=== PATIENT | female | born 1935 | race Caucasian/White ===

== ENCOUNTER 2019-09-30 17:17 | Inpatient (IN) ==
[2019-09-30] MEDS ORDERED: *HR* Heparin 5,000 UNIT/ML VIAL IVP PRN (20:05)
[2019-09-30] MEDS ORDERED: *HR* Heparin 5,000 UNIT/ML VIAL IVP ONE (20:05)
[2019-09-30] MEDS ORDERED: Ondansetron 4 MG/2 ML VIAL IVP PRN (20:07)
[2019-09-30] MEDS ORDERED: Naloxone 0.4 MG/ML INJ IVP PRN (20:07)
[2019-09-30] MEDS ORDERED: 0.9 % Sodium Chloride 1,000 ML IVC SCH (20:15)
[2019-09-30 20:50] LABS: Hematocrit 38.1 % (35.3-44.9); Hemoglobin 12.3 g/dL (11.5-15.4); Mean Corpuscular HGB Conc 32.3 g/dL (31.6-35.5); Mean Corpuscular Hemoglobin 30.8 pg (28.0-33.3); Mean Corpuscular Volume 95.5 fL (83.0-100.0); Mean Platelet Volume 9.9 fL (9.4-12.4); Platelet Count 228 K/mcL (140-400); Red Blood Count 3.99 M/mcL (3.82-4.97); Red Cell Distribution Width 12.2 % (11.5-14.5); White Blood Count 7.9 K/mcL (4.3-11.1)
[2019-09-30 20:51] LABS: INR 1.4; Prothrombin Time 15.5 Seconds (9.4-12.1)
[2019-09-30 21:04] LABS: BUN/Creatinine Ratio 19 (6-26); Blood Urea Nitrogen 10 mg/dL (8-23); Carbon Dioxide 36 mEq/L (23-29); Chloride 94 mEq/L (98-107); Glucose 96 mg/dL (70-105); Osmolality,Calculated 277 (280-300); Potassium 3.9 mEq/L (3.5-5.1); Sodium 134 mEq/L (136-145); eGFR For African Americans > 60 (> 60); eGFR For Non-African Americans > 60 (> 60)
[2019-09-30 21:25] LABS: Thyroid Stimulating Hormone 2.469 mcIU/mL (0.340-5.600)
[2019-09-30 22:20] LABS: Estimated Average Glucose 114 mg/dl
[2019-09-30] MEDS: Heparin 25,000 UNIT/250 ML D5W 25,000 UNIT/250 ML IV.SOLN IVC SCH (22:23)
[2019-09-30] MEDS: *HR* Heparin 5,000 UNIT/ML VIAL IVP PRN (22:24)
[2019-10-01 06:07] LABS: Hematocrit 38.2 % (35.3-44.9); Hemoglobin 11.9 g/dL (11.5-15.4); Mean Corpuscular HGB Conc 31.2 g/dL (31.6-35.5); Mean Corpuscular Hemoglobin 31.2 pg (28.0-33.3); Mean Platelet Volume 10.4 fL (9.4-12.4); Platelet Count 219 K/mcL (140-400); Red Blood Count 3.82 M/mcL (3.82-4.97); Red Cell Distribution Width 12.2 % (11.5-14.5); White Blood Count 8.9 K/mcL (4.3-11.1)
[2019-10-01 06:27] LABS: Alanine Aminotransferase 7 Units/L (7-52); Albumin 3.5 g/dL (3.5-5.7); Albumin/Globulin Ratio 1.3 (1.1-2.2); Alkaline Phosphatase 35 Units/L (34-104); Aspartate Amino Transferase 17 Units/L (13-39); BUN/Creatinine Ratio 16 (6-26); Bilirubin,Total 0.5 mg/dL (0.3-1.0); Blood Urea Nitrogen 8 mg/dL (8-23); Carbon Dioxide 39 mEq/L (23-29); Chloride 93 mEq/L (98-107); Globulin 2.8 g/dL (2.4-3.5); Glucose 94 mg/dL (70-105); Magnesium 1.8 mg/dL (1.6-2.6); Osmolality,Calculated 286 (280-300); Potassium 3.5 mEq/L (3.5-5.1); Sodium 139 mEq/L (136-145); Total Protein 6.3 g/dL (6.4-8.9); eGFR For African Americans > 60 (> 60); eGFR For Non-African Americans > 60 (> 60)
[2019-10-01] MEDS ORDERED: Perflutren Lipid Microsphere 1.3 ML in 0.9 % Sodium Chloride 8.7 ML IVP ONE (07:12)
[2019-10-01] MEDS ORDERED: Ipratropium/Albuterol Neb 3 ML IH PRN (11:16)
[2019-10-01] MEDS ORDERED: FLU Vac QV 19-20 (6Month+)/PF 0.5 ML SYRINGE IM ONE (15:02)
[2019-10-01] MEDS: *HR* Heparin 5,000 UNIT/ML VIAL IVP PRN (17:20)
[2019-10-02 03:03] LABS: ABG Base Excess 11 mEq/L (-2 to 3); ABG HCO3 41 mEq/L (21-27); ABG Oxygen Saturation 91 % (95-98); ABG PCO2 88 mmHg (35-45); ABG PH 7.28 pH Units (7.32-7.45); ABG PO2 73 mmHg (85-104); ABG TCO2 44 mEq/L (20-26)
[2019-10-02] MEDS: Heparin 25,000 UNIT/250 ML D5W 25,000 UNIT/250 ML IV.SOLN IVC SCH (05:47)
[2019-10-02 05:58] LABS: Hematocrit 37.3 % (35.3-44.9); Hemoglobin 11.5 g/dL (11.5-15.4); Mean Corpuscular HGB Conc 30.8 g/dL (31.6-35.5); Mean Corpuscular Hemoglobin 30.8 pg (28.0-33.3); Mean Platelet Volume 9.9 fL (9.4-12.4); Platelet Count 172 K/mcL (140-400); Red Blood Count 3.73 M/mcL (3.82-4.97); Red Cell Distribution Width 12.2 % (11.5-14.5); White Blood Count 4.6 K/mcL (4.3-11.1)
[2019-10-02 06:30] LABS: BUN/Creatinine Ratio 15 (6-26); Blood Urea Nitrogen 8 mg/dL (8-23); Calcium 9.2 mg/dL (8.6-10.3); Carbon Dioxide 40 mEq/L (23-29); Chloride 94 mEq/L (98-107); Glucose 117 mg/dL (70-105); Magnesium 1.9 mg/dL (1.6-2.6); Osmolality,Calculated 285 (280-300); Potassium 3.8 mEq/L (3.5-5.1); Sodium 138 mEq/L (136-145); eGFR For African Americans > 60 (> 60); eGFR For Non-African Americans > 60 (> 60)
[2019-10-02] MEDS ORDERED: Acetaminophen 650 MG RECTAL SUPP RC PRN (11:15)
[2019-10-02] MEDS ORDERED: Benzonatate 100 MG CAPSULE PO PRN (11:15)
[2019-10-02] MEDS ORDERED: *HR* LORazepam Oral Conc 2 MG/ML PO PRN (11:15)
[2019-10-02] MEDS ORDERED: diazePAM 5 MG TABLET PO PRN (11:15)
[2019-10-02] MEDS ORDERED: Albuterol 2.5 MG/3 ML NEBULIZER IH PRN (11:15)
[2019-10-02] MEDS: Ipratropium/Albuterol Neb 3 ML IH SCH ×4 (12:01→23:33)
[2019-10-02] MEDS: predniSONE 20 MG TABLET PO SCH (12:30)
[2019-10-02] MEDS: Diltiazem CD (24hr) 120 MG CAPSULE PO SCH (15:01)
[2019-10-02 15:52] LABS: Adenovirus Not Detected (Not Detect); Bordetella Pertussis Not Detected (Not Detect); Chlamydophila pneumoniae Not Detected (Not Detect); Coronavirus 229E Not Detected (Not Detect); Coronavirus HKU1 Not Detected (Not Detect); Coronavirus NL63 Not Detected (Not Detect); Coronavirus OC43 Not Detected (Not Detect); Human Metapneumovirus Not Detected (Not Detect); Human Rhinovirus/Enterovirus Not Detected (Not Detect); Influenza A Subtype 2009 H1 Not Detected (Not Detect); Influenza B Not Detected (Not Detect); Mycoplasma pneumoniae Not Detected (Not Detect); Parainfluenza Virus 1 Not Detected (Not Detect); Parainfluenza Virus 2 Not Detected (Not Detect); Parainfluenza Virus 3 Not Detected (Not Detect); Parainfluenza Virus 4 Not Detected (Not Detect); Respiratory Syncytial Virus Not Detected (Not Detect)
[2019-10-02] MEDS: Apixaban 5 MG TABLET PO SCH ×2 (18:41→22:15)
[2019-10-02] MEDS ORDERED: *HR* Metoprolol 5 MG/5 ML VIAL IVP ONE (22:37)
[2019-10-03 03:16] LABS: BUN/Creatinine Ratio 20 (6-26); Blood Urea Nitrogen 11 mg/dL (8-23); Calcium 9.1 mg/dL (8.6-10.3); Carbon Dioxide 36 mEq/L (23-29); Chloride 93 mEq/L (98-107); Glucose 110 mg/dL (70-105); Osmolality,Calculated 278 (280-300); Potassium 4.1 mEq/L (3.5-5.1); Sodium 134 mEq/L (136-145); eGFR For African Americans > 60 (> 60); eGFR For Non-African Americans > 60 (> 60)
[2019-10-03 03:20] LABS: Hematocrit 36.7 % (35.3-44.9); Hemoglobin 11.4 g/dL (11.5-15.4); Mean Corpuscular HGB Conc 31.1 g/dL (31.6-35.5); Mean Corpuscular Hemoglobin 31.3 pg (28.0-33.3); Mean Corpuscular Volume 100.8 fL (83.0-100.0); Mean Platelet Volume 10.3 fL (9.4-12.4); Platelet Count 179 K/mcL (140-400); Red Blood Count 3.64 M/mcL (3.82-4.97); Red Cell Distribution Width 12.1 % (11.5-14.5); White Blood Count 5.1 K/mcL (4.3-11.1)
[2019-10-03] MEDS: Ipratropium/Albuterol Neb 3 ML IH SCH ×3 (03:53→11:37)
[2019-10-03] MEDS: Tiotropium 18 MCG inhalation IH SCH (07:18)
[2019-10-03] MEDS: Diltiazem CD (24hr) 120 MG CAPSULE PO SCH (08:42)
[2019-10-03] MEDS: Metoprolol 100 MG TABLET PO SCH ×2 (08:42→20:48)
[2019-10-03] MEDS: predniSONE 20 MG TABLET PO SCH (08:42)
[2019-10-03] MEDS: Apixaban 5 MG TABLET PO SCH ×2 (08:43→20:48)
[2019-10-03 11:33] LABS: ABG Base Excess 13 mEq/L (-2 to 3); ABG HCO3 44 mEq/L (21-27); ABG Oxygen Saturation 91 % (95-98); ABG PCO2 104 mmHg (35-45); ABG PH 7.24 pH Units (7.32-7.45); ABG PO2 78 mmHg (85-104); ABG TCO2 48 mEq/L (20-26)
[2019-10-03] MEDS ORDERED: Piperacillin/Tazobactam 3.375 GM in 0.9 % Sodium Chloride Mini Bag 100 ML IVPB SCH (12:00)
[2019-10-03] MEDS: MethylPREDNISolone 40 MG/ML VIAL IVP SCH (15:20)
[2019-10-03] MEDS: Levalbuterol Neb 0.63 MG/3 ML IH SCH ×2 (15:59→21:41)
[2019-10-04] MEDS: Piperacillin/Tazobactam 3.375 GM in 0.9 % Sodium Chloride Mini Bag 100 ML IVPB SCH ×3 (00:17→16:09)
[2019-10-04] MEDS: MethylPREDNISolone 40 MG/ML VIAL IVP SCH ×3 (00:17→16:09)
[2019-10-04] MEDS: Levalbuterol Neb 0.63 MG/3 ML IH SCH ×4 (03:26→21:41)
[2019-10-04 05:28] LABS: Hematocrit 39.8 % (35.3-44.9); Hemoglobin 12.3 g/dL (11.5-15.4); Immature Granulocytes % 0.3 % (0-4); Lymphocytes # 0.3 K/mcL (0.6-4.6); Lymphocytes % 9.1 %; Mean Corpuscular HGB Conc 30.9 g/dL (31.6-35.5); Mean Corpuscular Hemoglobin 30.9 pg (28.0-33.3); Mean Platelet Volume 10.8 fL (9.4-12.4); Monocytes # 0.1 K/mcL (0.0-1.3); Monocytes % 1.5 %; Platelet Count 170 K/mcL (140-400); Red Blood Count 3.98 M/mcL (3.82-4.97); Red Cell Distribution Width 11.9 % (11.5-14.5); Segmented Neutrophils % 89.1 %; White Blood Count 3.3 K/mcL (4.3-11.1)
[2019-10-04 05:46] LABS: BUN/Creatinine Ratio 21 (6-26); Blood Urea Nitrogen 12 mg/dL (8-23); Calcium 9.7 mg/dL (8.6-10.3); Carbon Dioxide 40 mEq/L (23-29); Chloride 88 mEq/L (98-107); Glucose 133 mg/dL (70-105); Magnesium 1.9 mg/dL (1.6-2.6); Osmolality,Calculated 282 (280-300); Potassium 4.8 mEq/L (3.5-5.1); Sodium 135 mEq/L (136-145); eGFR For African Americans > 60 (> 60); eGFR For Non-African Americans > 60 (> 60)
[2019-10-04] MEDS ORDERED: *HR* LORazepam 2 MG/ML VIAL IVP ONE (08:57)
[2019-10-04] MEDS: Metoprolol 100 MG TABLET PO SCH ×2 (09:03→21:10)
[2019-10-04] MEDS: Diltiazem CD (24hr) 180 MG CAPSULE PO SCH (09:03)
[2019-10-04] MEDS: Apixaban 5 MG TABLET PO SCH ×2 (09:03→21:10)
[2019-10-04] MEDS: Tiotropium 18 MCG inhalation IH SCH (10:52)
[2019-10-04] MEDS: *HR* LORazepam Oral Conc 2 MG/ML PO PRN (12:12)
[2019-10-05 00:40] LABS: Bilirubin,Urine Negative (Negative); Blood,Urine Negative (Negative); Clarity,Urine Clear (Clear); Color,Urine Yellow (Yellow); Glucose,Urine (UA) Normal (Normal); Ketones,Urine Negative (Negative); Leukocyte Esterase,Urine Negative (Negative); Nitrite,Urine Negative (Negative); PH,Urine 6.5 pH Units (5.0-8.0); Protein,Urine Negative (Neg-Trace); Urobilinogen,Urine Normal (Normal)
[2019-10-05] MEDS: MethylPREDNISolone 40 MG/ML VIAL IVP SCH ×3 (00:46→16:38)
[2019-10-05] MEDS: Piperacillin/Tazobactam 3.375 GM in 0.9 % Sodium Chloride Mini Bag 100 ML IVPB SCH ×3 (00:46→16:38)
[2019-10-05] MEDS: Levalbuterol Neb 0.63 MG/3 ML IH SCH ×4 (04:05→22:23)
[2019-10-05] MEDS: *HR* LORazepam Oral Conc 2 MG/ML PO PRN (04:48)
[2019-10-05 07:10] LABS: Hematocrit 36.8 % (35.3-44.9); Hemoglobin 11.7 g/dL (11.5-15.4); Immature Granulocytes % 0.7 % (0-4); Lymphocytes # 0.2 K/mcL (0.6-4.6); Lymphocytes % 3.8 %; Mean Corpuscular HGB Conc 31.8 g/dL (31.6-35.5); Mean Corpuscular Hemoglobin 30.8 pg (28.0-33.3); Mean Corpuscular Volume 96.8 fL (83.0-100.0); Mean Platelet Volume 10.9 fL (9.4-12.4); Monocytes # 0.2 K/mcL (0.0-1.3); Monocytes % 3.3 %; Neutrophils # 5.1 K/mcL (1.6-8.9); Platelet Count 184 K/mcL (140-400); Red Cell Distribution Width 12.3 % (11.5-14.5); Segmented Neutrophils % 92.2 %
[2019-10-05 07:18] LABS: White Blood Count 5.5 K/mcL (4.3-11.1)
[2019-10-05 07:53] LABS: BUN/Creatinine Ratio 25 (6-26); Blood Urea Nitrogen 14 mg/dL (8-23); Calcium 9.3 mg/dL (8.6-10.3); Carbon Dioxide 44 mEq/L (23-29); Chloride 90 mEq/L (98-107); Glucose 159 mg/dL (70-105); Osmolality,Calculated 292 (280-300); Potassium 4.3 mEq/L (3.5-5.1); Sodium 139 mEq/L (136-145); eGFR For African Americans > 60 (> 60); eGFR For Non-African Americans > 60 (> 60)
[2019-10-05] MEDS: Tiotropium 18 MCG inhalation IH SCH (09:58)
[2019-10-05] MEDS: Apixaban 5 MG TABLET PO SCH ×2 (10:40→19:31)
[2019-10-05] MEDS: Diltiazem CD (24hr) 180 MG CAPSULE PO SCH (10:40)
[2019-10-05] MEDS: Metoprolol 100 MG TABLET PO SCH ×2 (10:40→19:31)
[2019-10-06] MEDS: Piperacillin/Tazobactam 3.375 GM in 0.9 % Sodium Chloride Mini Bag 100 ML IVPB SCH ×3 (00:07→16:17)
[2019-10-06] MEDS: MethylPREDNISolone 40 MG/ML VIAL IVP SCH ×3 (00:07→16:17)
[2019-10-06] MEDS: *HR* LORazepam Oral Conc 2 MG/ML PO PRN ×2 (04:12→10:39)
[2019-10-06] MEDS: Levalbuterol Neb 0.63 MG/3 ML IH SCH ×4 (04:14→22:31)
[2019-10-06 06:01] LABS: Hematocrit 41.5 % (35.3-44.9); Immature Granulocytes % 0.6 % (0-4); Lymphocytes # 0.4 K/mcL (0.6-4.6); Lymphocytes % 5.8 %; Mean Corpuscular HGB Conc 31.3 g/dL (31.6-35.5); Mean Corpuscular Hemoglobin 30.5 pg (28.0-33.3); Mean Corpuscular Volume 97.4 fL (83.0-100.0); Mean Platelet Volume 10.8 fL (9.4-12.4); Monocytes # 0.3 K/mcL (0.0-1.3); Monocytes % 4.3 %; Neutrophils # 5.6 K/mcL (1.6-8.9); Platelet Count 186 K/mcL (140-400); Red Blood Count 4.26 M/mcL (3.82-4.97); Red Cell Distribution Width 12.4 % (11.5-14.5); Segmented Neutrophils % 89.3 %; White Blood Count 6.2 K/mcL (4.3-11.1)
[2019-10-06 06:06] LABS: BUN/Creatinine Ratio 28 (6-26); Blood Urea Nitrogen 16 mg/dL (8-23); Calcium 9.4 mg/dL (8.6-10.3); Carbon Dioxide 39 mEq/L (23-29); Chloride 91 mEq/L (98-107); Glucose 148 mg/dL (70-105); Osmolality,Calculated 288 (280-300); Potassium 4.7 mEq/L (3.5-5.1); Sodium 137 mEq/L (136-145); eGFR For African Americans > 60 (> 60); eGFR For Non-African Americans > 60 (> 60)
[2019-10-06] MEDS: Diltiazem CD (24hr) 180 MG CAPSULE PO SCH (09:41)
[2019-10-06] MEDS: Metoprolol 100 MG TABLET PO SCH ×2 (09:41→21:47)
[2019-10-06] MEDS: Apixaban 5 MG TABLET PO SCH ×2 (09:41→21:47)
[2019-10-06] MEDS: Diltiazem SR (12hr) 60 MG CAPSULE PO SCH ×2 (10:33→21:46)
[2019-10-06] MEDS: Tiotropium 18 MCG inhalation IH SCH (10:46)
[2019-10-07] MEDS: Levalbuterol Neb 0.63 MG/3 ML IH SCH ×4 (04:39→21:28)
[2019-10-07] MEDS: Metoprolol 100 MG TABLET PO SCH ×2 (08:37→20:39)
[2019-10-07] MEDS: MethylPREDNISolone 40 MG/ML VIAL IVP SCH ×2 (08:38→16:33)
[2019-10-07] MEDS: levoFLOXacin 750 MG TABLET PO SCH (08:38)
[2019-10-07] MEDS: Apixaban 5 MG TABLET PO SCH ×2 (08:38→20:39)
[2019-10-07] MEDS: Diltiazem CD (24hr) 300 MG CAPSULE PO SCH (08:38)
[2019-10-07] MEDS ORDERED: Diltiazem CD (24hr) 240 MG CAPSULE PO SCH (09:00)
[2019-10-07] MEDS: Tiotropium 18 MCG inhalation IH SCH (09:30)
[2019-10-07] MEDS: *HR* LORazepam Oral Conc 2 MG/ML PO PRN ×2 (16:42→20:44)
[2019-10-08] MEDS: Levalbuterol Neb 0.63 MG/3 ML IH SCH ×4 (03:33→22:24)
[2019-10-08] MEDS: levoFLOXacin 750 MG TABLET PO SCH (08:14)
[2019-10-08] MEDS: Metoprolol 100 MG TABLET PO SCH ×2 (08:14→20:20)
[2019-10-08] MEDS: Apixaban 5 MG TABLET PO SCH ×2 (08:14→20:20)
[2019-10-08] MEDS: Diltiazem CD (24hr) 300 MG CAPSULE PO SCH (08:14)
[2019-10-08] MEDS: MethylPREDNISolone 40 MG/ML VIAL IVP SCH ×2 (08:14→16:08)
[2019-10-08] MEDS: Tiotropium 18 MCG inhalation IH SCH (10:34)
[2019-10-08] MEDS: *HR* LORazepam Oral Conc 2 MG/ML PO PRN (16:12)
[2019-10-09] MEDS: *HR* LORazepam Oral Conc 2 MG/ML PO PRN ×2 (00:23→08:15)
[2019-10-09] MEDS: Levalbuterol Neb 0.63 MG/3 ML IH SCH ×4 (03:25→20:58)
[2019-10-09 05:38] LABS: Hematocrit 38.6 % (35.3-44.9); Immature Granulocytes % 0.7 % (0-4); Lymphocytes # 0.3 K/mcL (0.6-4.6); Lymphocytes % 5.2 %; Mean Corpuscular HGB Conc 31.1 g/dL (31.6-35.5); Mean Corpuscular Hemoglobin 31.4 pg (28.0-33.3); Mean Platelet Volume 10.6 fL (9.4-12.4); Monocytes # 0.4 K/mcL (0.0-1.3); Neutrophils # 5.4 K/mcL (1.6-8.9); Platelet Count 173 K/mcL (140-400); Red Blood Count 3.82 M/mcL (3.82-4.97); Red Cell Distribution Width 12.3 % (11.5-14.5); Segmented Neutrophils % 88.1 %; White Blood Count 6.1 K/mcL (4.3-11.1)
[2019-10-09 05:54] LABS: BUN/Creatinine Ratio 33 (6-26); Blood Urea Nitrogen 22 mg/dL (8-23); Calcium 9.2 mg/dL (8.6-10.3); Carbon Dioxide 45 mEq/L (23-29); Chloride 90 mEq/L (98-107); Glucose 183 mg/dL (70-105); Osmolality,Calculated 294 (280-300); Potassium 4.8 mEq/L (3.5-5.1); Sodium 138 mEq/L (136-145); eGFR For African Americans > 60 (> 60); eGFR For Non-African Americans > 60 (> 60)
[2019-10-09] MEDS ORDERED: *HR* Metoprolol 5 MG/5 ML VIAL IVP STA (06:32)
[2019-10-09] MEDS: Metoprolol 100 MG TABLET PO SCH ×2 (07:59→21:14)
[2019-10-09] MEDS: Apixaban 5 MG TABLET PO SCH ×2 (07:59→21:14)
[2019-10-09] MEDS: Diltiazem CD (24hr) 300 MG CAPSULE PO SCH (07:59)
[2019-10-09] MEDS: levoFLOXacin 750 MG TABLET PO SCH (08:00)
[2019-10-09] MEDS: MethylPREDNISolone 40 MG/ML VIAL IVP SCH ×2 (08:00→15:43)
[2019-10-09] MEDS: Tiotropium 18 MCG inhalation IH SCH (10:49)
[2019-10-10] MEDS: Levalbuterol Neb 0.63 MG/3 ML IH SCH ×4 (03:30→22:55)
[2019-10-10 04:52] LABS: Basophils % 0.1 %; Hematocrit 40.3 % (35.3-44.9); Hemoglobin 12.6 g/dL (11.5-15.4); Immature Granulocytes % 0.4 % (0-4); Lymphocytes # 0.4 K/mcL (0.6-4.6); Lymphocytes % 4.6 %; Mean Corpuscular HGB Conc 31.3 g/dL (31.6-35.5); Mean Platelet Volume 10.8 fL (9.4-12.4); Monocytes # 0.4 K/mcL (0.0-1.3); Monocytes % 5.3 %; Neutrophils # 6.9 K/mcL (1.6-8.9); Platelet Count 205 K/mcL (140-400); Red Blood Count 4.07 M/mcL (3.82-4.97); Red Cell Distribution Width 12.2 % (11.5-14.5); Segmented Neutrophils % 89.6 %; White Blood Count 7.7 K/mcL (4.3-11.1)
[2019-10-10 05:23] LABS: BUN/Creatinine Ratio 29 (6-26); Blood Urea Nitrogen 19 mg/dL (8-23); Calcium 9.2 mg/dL (8.6-10.3); Carbon Dioxide 43 mEq/L (23-29); Chloride 88 mEq/L (98-107); Glucose 158 mg/dL (70-105); Osmolality,Calculated 288 (280-300); Potassium 4.7 mEq/L (3.5-5.1); Sodium 136 mEq/L (136-145); eGFR For African Americans > 60 (> 60); eGFR For Non-African Americans > 60 (> 60)
[2019-10-10] MEDS: Diltiazem CD (24hr) 300 MG CAPSULE PO SCH (06:04)
[2019-10-10] MEDS: levoFLOXacin 750 MG TABLET PO SCH (08:15)
[2019-10-10] MEDS: MethylPREDNISolone 40 MG/ML VIAL IVP SCH ×2 (08:16→16:51)
[2019-10-10] MEDS: Apixaban 5 MG TABLET PO SCH ×2 (08:16→20:05)
[2019-10-10] MEDS: Metoprolol 100 MG TABLET PO SCH ×2 (08:16→20:05)
[2019-10-10] MEDS: *HR* LORazepam Oral Conc 2 MG/ML PO PRN ×2 (10:17→18:36)
[2019-10-10] MEDS: Tiotropium 18 MCG inhalation IH SCH (10:49)
[2019-10-10] MEDS ORDERED: *HR* Metoprolol 5 MG/5 ML VIAL IVP ONE (23:59)
[2019-10-11 01:27] LABS: Hematocrit 37.4 % (35.3-44.9); Hemoglobin 11.5 g/dL (11.5-15.4); Immature Granulocytes % 0.5 % (0-4); Lymphocytes # 0.2 K/mcL (0.6-4.6); Lymphocytes % 3.1 %; Mean Corpuscular HGB Conc 30.7 g/dL (31.6-35.5); Mean Corpuscular Hemoglobin 30.9 pg (28.0-33.3); Mean Corpuscular Volume 100.5 fL (83.0-100.0); Mean Platelet Volume 10.4 fL (9.4-12.4); Monocytes # 0.3 K/mcL (0.0-1.3); Monocytes % 3.6 %; Platelet Count 165 K/mcL (140-400); Red Blood Count 3.72 M/mcL (3.82-4.97); Red Cell Distribution Width 12.1 % (11.5-14.5); Segmented Neutrophils % 92.8 %; White Blood Count 7.5 K/mcL (4.3-11.1)
[2019-10-11 01:54] LABS: BUN/Creatinine Ratio 43 (6-26); Blood Urea Nitrogen 23 mg/dL (8-23); Calcium 8.8 mg/dL (8.6-10.3); Carbon Dioxide 43 mEq/L (23-29); Chloride 89 mEq/L (98-107); Glucose 207 mg/dL (70-105); Osmolality,Calculated 290 (280-300); Potassium 4.8 mEq/L (3.5-5.1); Sodium 135 mEq/L (136-145); eGFR For African Americans > 60 (> 60); eGFR For Non-African Americans > 60 (> 60)
[2019-10-11] MEDS ORDERED: *HR* Metoprolol 5 MG/5 ML VIAL IVP ONE (02:35)
[2019-10-11] MEDS: Levalbuterol Neb 0.63 MG/3 ML IH SCH ×4 (04:11→22:38)
[2019-10-11] MEDS: Metoprolol 100 MG TABLET PO SCH (05:59)
[2019-10-11] MEDS ORDERED: Metoprolol XL (24 HR) Succ 50 MG TAB.ER.24H PO SCH (09:00)
[2019-10-11] MEDS: Tiotropium 18 MCG inhalation IH SCH (10:19)
[2019-10-11] MEDS: levoFLOXacin 750 MG TABLET PO SCH (11:32)
[2019-10-11] MEDS: Diltiazem CD (24hr) 300 MG CAPSULE PO SCH (11:32)
[2019-10-11] MEDS: Apixaban 5 MG TABLET PO SCH ×2 (11:32→22:34)
[2019-10-11] MEDS: predniSONE 20 MG TABLET PO SCH (11:32)
[2019-10-11] MEDS: *HR* Digoxin 0.5 MG/2 ML AMPUL IVP SCH (17:19)
[2019-10-11] MEDS: *HR* LORazepam Oral Conc 2 MG/ML PO PRN (22:35)
[2019-10-12] MEDS: *HR* Digoxin 0.5 MG/2 ML AMPUL IVP SCH ×2 (00:08→05:44)
[2019-10-12 02:22] LABS: Hematocrit 37.7 % (35.3-44.9); Hemoglobin 12.1 g/dL (11.5-15.4); Lymphocytes # 0.5 K/mcL (0.6-4.6); Lymphocytes % 6.5 %; Mean Corpuscular HGB Conc 32.1 g/dL (31.6-35.5); Mean Corpuscular Hemoglobin 31.3 pg (28.0-33.3); Mean Corpuscular Volume 97.4 fL (83.0-100.0); Mean Platelet Volume 10.5 fL (9.4-12.4); Monocytes # 0.8 K/mcL (0.0-1.3); Monocytes % 10.7 %; Neutrophils # 5.8 K/mcL (1.6-8.9); Platelet Count 172 K/mcL (140-400); Red Blood Count 3.87 M/mcL (3.82-4.97); Red Cell Distribution Width 12.2 % (11.5-14.5); Segmented Neutrophils % 81.8 %; White Blood Count 7.1 K/mcL (4.3-11.1)
[2019-10-12 02:49] LABS: BUN/Creatinine Ratio 29 (6-26); Blood Urea Nitrogen 17 mg/dL (8-23); Calcium 8.8 mg/dL (8.6-10.3); Carbon Dioxide > 45 mEq/L (23-29); Chloride 91 mEq/L (98-107); Glucose 151 mg/dL (70-105); Magnesium 2.3 mg/dL (1.6-2.6); Osmolality,Calculated 290 (280-300); Potassium 4.5 mEq/L (3.5-5.1); Sodium 138 mEq/L (136-145); eGFR For African Americans > 60 (> 60); eGFR For Non-African Americans > 60 (> 60)
[2019-10-12] MEDS: Levalbuterol Neb 0.63 MG/3 ML IH SCH ×3 (03:35→16:16)
[2019-10-12] MEDS: Apixaban 5 MG TABLET PO SCH ×2 (08:47→21:21)
[2019-10-12] MEDS: predniSONE 20 MG TABLET PO SCH (08:48)
[2019-10-12] MEDS: Metoprolol XL (24 HR) Succ 50 MG TAB.ER.24H PO SCH (08:48)
[2019-10-12] MEDS ORDERED: Diltiazem CD (24hr) 240 MG CAPSULE PO SCH (09:00)
[2019-10-12] MEDS ORDERED: *HR* Digoxin 0.125 MG TABLET PO SCH (09:00)
[2019-10-12] MEDS: Tiotropium 18 MCG inhalation IH SCH (10:27)
[2019-10-12] MEDS: *HR* Digoxin 0.125 MG TABLET PO SCH (14:15)
[2019-10-12] MEDS ORDERED: *HR* Digoxin 0.5 MG/2 ML AMPUL IVP ONE ×2 (14:17→17:58)
[2019-10-12] MEDS ORDERED: Levalbuterol Neb 0.63 MG/3 ML IH PRN (16:23)
[2019-10-13] MEDS: *HR* LORazepam Oral Conc 2 MG/ML PO PRN ×2 (02:29→15:06)
[2019-10-13 07:34] LABS: Basophils % 0.1 %; Eosinophils # 0.1 K/mcL (0.0-0.6); Eosinophils % 1.1 %; Hematocrit 39.7 % (35.3-44.9); Hemoglobin 12.4 g/dL (11.5-15.4); Immature Granulocytes % 0.6 % (0-4); Lymphocytes # 1.2 K/mcL (0.6-4.6); Lymphocytes % 13.2 %; Mean Corpuscular HGB Conc 31.2 g/dL (31.6-35.5); Mean Corpuscular Hemoglobin 30.8 pg (28.0-33.3); Mean Corpuscular Volume 98.5 fL (83.0-100.0); Mean Platelet Volume 10.4 fL (9.4-12.4); Monocytes # 1.1 K/mcL (0.0-1.3); Monocytes % 12.9 %; Neutrophils # 6.3 K/mcL (1.6-8.9); Platelet Count 176 K/mcL (140-400); Red Blood Count 4.03 M/mcL (3.82-4.97); Red Cell Distribution Width 12.2 % (11.5-14.5); Segmented Neutrophils % 72.1 %; White Blood Count 8.8 K/mcL (4.3-11.1)
[2019-10-13] MEDS: *HR* Digoxin 0.125 MG TABLET PO SCH (08:08)
[2019-10-13] MEDS: Metoprolol XL (24 HR) Succ 50 MG TAB.ER.24H PO SCH (08:08)
[2019-10-13] MEDS: Apixaban 5 MG TABLET PO SCH (08:08)
[2019-10-13] MEDS ORDERED: predniSONE 20 MG TABLET PO SCH (09:00)
[2019-10-13 09:43] LABS: BUN/Creatinine Ratio 29 (6-26); Blood Urea Nitrogen 15 mg/dL (8-23); Calcium 8.4 mg/dL (8.6-10.3); Carbon Dioxide > 45 mEq/L (23-29); Chloride 85 mEq/L (98-107); Glucose 91 mg/dL (70-105); Magnesium 2.1 mg/dL (1.6-2.6); Osmolality,Calculated 286 (280-300); Potassium 4.1 mEq/L (3.5-5.1); Sodium 138 mEq/L (136-145); eGFR For African Americans > 60 (> 60); eGFR For Non-African Americans > 60 (> 60)
[2019-10-13] MEDS ORDERED: Metoprolol XL (24 HR) Succ 50 MG TAB.ER.24H PO SCH (09:55)
[2019-10-13] MEDS ORDERED: *HR* Metoprolol 5 MG/5 ML VIAL IVP ONE ×2 (09:55→10:10)
[2019-10-13] MEDS: Tiotropium 18 MCG inhalation IH SCH (10:43)
[2019-10-13] MEDS ORDERED: Diltiazem CD (24hr) 180 MG CAPSULE PO SCH (12:34)
[2019-10-13 15:21] LABS: ABG Base Excess 16 mEq/L (-2 to 3); ABG HCO3 46 mEq/L (21-27); ABG Oxygen Saturation 96 % (95-98); ABG PCO2 75 mmHg (35-45); ABG PH 7.39 pH Units (7.32-7.45); ABG PO2 86 mmHg (85-104); ABG TCO2 48 mEq/L (20-26)
[2019-10-13 16:17] VITALS: BP 98/71
== END 2019-10-13 19:26 | DRG 280 ==
LOC: 2NENU → SUATTDRO 18:19
PROVIDERS: ADMIT Family Medicine; ATTEND Pharmacist